=== PATIENT | male | born 1950 | race Caucasian/White ===

== ENCOUNTER → 2017-03-16 | Outpatient (CLI) | payer MEDICARE ==
--- NOTE | 2017-03-16 13:37 | REP ---
LUMBAR SPINE, FIVE VIEWS: HISTORY: Back pain. There is no acute fracture. The L2-3 through L5-S1 intervertebral discs are decreased in height consistent with disc degeneration. Osteophytes are present on L2 through L5. There is narrowing of the right L4-5 and L5-S1 and left L4-5 facet joints. There are 5 mm of grade 1 spondylolisthesis of L4 on L5. IMPRESSION: Degenerative change as described above. Signed by Chuck Herring MD 03/16/2017 01:44 P
== END ==
LOC: M WUC 11:58
PROVIDERS: ATTEND Physician Assistant
DX: M54.5 Low back pain (principal)